=== PATIENT | female | born 1960 | race American Indian/Alaskan Native ===

== ENCOUNTER 2018-10-02 23:53 | Emergency (ER) | payer BC ==
--- NOTE | 2018-10-03 00:55 | XRay Report ---
PROCEDURE: XR CHEST ROUTINE 2V TECHNIQUE: PA and lateral chest radiographs were obtained. HISTORY: SOB COMPARISONS: None. FINDINGS: Heart: Normal. Mediastinum/Vessels: Normal. Lungs/Pleural space: There are increased markings in both lower lungs most consistent with a early i nfiltrative process. No effusion or pneumothorax.. Bony thorax: No acute osseous abnormality. IMPRESSION: Increased markings in both lower lungs most consistent with an early infiltrative proces s. No evidence of effusion or pneumothorax. This document is electronically signed by Vale Clemons DO., October 03 2018 12:53:48 AM ET
[2018-10-03] MEDS ORDERED: ROCEPHIN/NS 1 GM/50 ML 1 GM/50 ML BAG IV ONE (04:15)
[2018-10-03] MEDS ORDERED: IBUPROFEN PO ONE (04:15)
[2018-10-03] MEDS ORDERED: DUONEB *Not for PRN Use IH ONE (04:15)
[2018-10-03] MEDS ORDERED: DECADRON IV ONE (04:17)
--- NOTE | 2018-10-03 04:18 | Emergency Department Report ---
ED General Adult HPI - General Chief complaint: Dyspnea/Respdistress Stated complaint: SOB Time Seen by Provider: 10/03/18 04:12 Source: patient Mode of arrival: Ambulatory Limitations: No Limitations - History of Present Illness Initial comments: Pt is a 58 y/o aaf with hx of COPD,and HTN, who presents for cough productive green with noc wheezing for past x 3 days , symptoms are exacerbated by environmental exposure symptoms are relieved by rest, pt denies cp or n/v. pt endorses out of albuterol and symbicort. [email or web address] is follow by pulmonology Dr. Tatum costello Onset/Timin -: days(s) Radiation: non-radiation Severity scale (0 -10): 3 Consistency: constant Improves with: rest Worsens with: other (environmental exposure ) Associated Symptoms: cough Treatments Prior to Arrival: none - Related Data Previous Rx's Medication Instructions Recorded Last Taken Type ALBUTEROL Inhaler(NF) [VENTOLIN 2 puff IH Q4HRT PRN #1 inha 10/03/18 Unknown Rx Inhaler(NF)] Azithromycin [Zithromax Z-FRANSISCO] 250 mg PO DAILY #6 tab 10/03/18 Unknown Rx Benzonatate [Tessalon Perle] 100 mg PO TID PRN #30 capsule 10/03/18 Unknown Rx Budesoni/Formotero 160-4.5(Nf) 2 puff IH BID #1 inha 10/03/18 Unknown Rx [Symbicort 160-4.5 (Nf)] Ibuprofen 800 mg PO TID PRN #30 tablet 10/03/18 Unknown Rx Allergies Allergy/AdvReac Type Severity Reaction Status Date / Time Sulfa (Sulfonamide Allergy Rash Verified 10/03/18 00:13 Antibiotics) ED Review of Systems ROS: Stated complaint: SOB Other details as noted in HPI Constitutional: denies: chills, fever Eyes: denies: eye pain, eye discharge, vision change ENT: ear pain, throat pain, congestion Respiratory: cough, wheezing. denies: shortness of breath Cardiovascular: denies: chest pain, palpitations Endocrine: no symptoms reported Gastrointestinal: denies: abdominal pain, nausea, vomiting, diarrhea Genitourinary: denies: urgency, dysuria, discharge Musculoskeletal: denies: back pain, joint swelling, arthralgia Skin: denies: rash, lesions Neurological: denies: headache, weakness, paresthesias Psychiatric: denies: anxiety, depression Hematological/Lymphatic: denies: easy bleeding, easy bruising ED Past Medical Hx - Past Medical History Previous Medical History?: Yes Hx Hypertension: Yes Hx Psychiatric Treatment: Yes (Bipolar, severe depression) Hx COPD: Yes Additional medical history: Emphysema,Bronchitis, High Cholesterol - Surgical History Past Surgical History?: Yes Additional Surgical History: Hysterectomy - Social History Smoking Status: Current Every Day Smoker Substance Use Type: Alcohol, Cocaine, Marijuana - Medications Home Medications: Home Medications Medication Instructions Recorded Confirmed Last Taken Type ALBUTEROL Inhaler(NF) [VENTOLIN 2 puff IH Q4HRT PRN #1 inha 10/03/18 Unknown Rx Inhaler(NF)] Azithromycin [Zithromax Z-FRANSISCO] 250 mg PO DAILY #6 tab 10/03/18 Unknown Rx Benzonatate [Tessalon Perle] 100 mg PO TID PRN #30 capsule 10/03/18 Unknown Rx Budesoni/Formotero 160-4.5(Nf) 2 puff IH BID #1 inha 10/03/18 Unknown Rx [Symbicort 160-4.5 (Nf)] Ibuprofen 800 mg PO TID PRN #30 tablet 10/03/18 Unknown Rx ED Physical Exam - General Limitations: No Limitations General appearance: alert, in no apparent distress - Head Head exam: Present: atraumatic, normocephalic - Eye Eye exam: Present: normal appearance, PERRL, EOMI Pupils: Present: normal accommodation - ENT ENT exam: Present: normal exam, normal orophraynx, mucous membranes moist, TM's normal bilaterally, normal external ear exam - Neck Neck exam: Present: normal inspection, full ROM. Absent: tenderness, meningismus, lymphadenopathy, thyromegaly - Respiratory Respiratory exam: Present: wheezes. Absent: respiratory distress, stridor, chest wall tenderness, prolonged expiratory - Cardiovascular Cardiovascular Exam: Present: regular rate, normal rhythm, normal heart sounds. Absent: systolic murmur, diastolic murmur, rubs, gallop - GI/Abdominal GI/Abdominal exam: Present: soft, normal bowel sounds. Absent: distended, tenderness, bruit, hernia - Rectal Rectal exam: Present: deferred - Extremities Exam Extremities exam: Present: normal inspection, full ROM, normal capillary refill. Absent: tenderness, pedal edema, joint swelling, calf tenderness - Back Exam Back exam: Present: normal inspection, full ROM. Absent: tenderness, CVA tenderness (R), CVA tenderness (L), muscle spasm, paraspinal tenderness, vertebral tenderness, rash noted - Neurological Exam Neurological exam: Present: alert, oriented X3, CN II-XII intact, normal gait - Psychiatric Psychiatric exam: Present: normal affect, normal mood - Skin Skin exam: Present: warm, dry, intact, normal color. Absent: rash ED Course Vital Signs 10/03/18 00:08 Temperature 97.7 F Pulse Rate 107 H Blood Pressure 159/90 ED Medical Decision Making - EKG Data EKG shows normal: sinus rhythm, axis, intervals, QRS complexes, ST-T waves Rate: normal - EKG Data Interpretation: normal EKG (Ekg interp by ed attending ) - Radiology Data Radiology results: report reviewed, image reviewed Patient: ZHANE ECHEVERRIA MR#: [id number] 7 : 1960 Acct:[id number] Age/Sex: 58 / F ADM Date: 10/02/18 Loc: ED Attending Dr: Ordering Physician: MAURO BRANCH MD Date of Service: 10/03/18 Procedure(s): XR chest routine 2V Accession Number(s): [id number] cc: ED MD SARINA Fluoro Time In Minutes: PROCEDURE: XR CHEST ROUTINE 2V TECHNIQUE: PA and lateral chest radiographs were obtained. HISTORY: SOB COMPARISONS: None. FINDINGS: Heart: Normal. Mediastinum/Vessels: Normal. Lungs/Pleural space: There are increased markings in both lower lungs most consistent with a early infiltrative process. No effusion or pneumothorax.. Bony thorax: No acute osseous abnormality. IMPRESSION: Increased markings in both lower lungs most consistent with an early infiltrative process. No evidence of effusion or pneumothorax. This document is electronically signed by Vale Clemons DO., October 03 2018 12:53:48 AM ET Transcribed By: [facility] Dictated By: VALE CLEMONS MD Electronically Authenticated By: VALE CLEMONS MD Signed Date/Time: 10/03/1854 DD/ TD/TT: 10/03/1840 - Medical Decision Making Symptoms are improved patient examined today in ED without increased shortness of breath plan refill Albuterol and Symbicort inhalers , azithromycin , Tessalon Pearls, Ibuprofen follow up with pcp in [address] Larsen, pt also given referral to [facility]. pt for dc to home in stable condition at this time. Critical care attestation.: If time is entered above; I have spent that time in minutes in the direct care of this critically ill patient, excluding procedure time. ED Disposition Clinical Impression: Bronchitis URI (upper respiratory infection) Qualifiers: URI type: unspecified viral URI Qualified Code(s): J06.9 - Acute upper respiratory infection, unspecified Disposition: DC-01 TO HOME OR SELFCARE Is pt being admited?: No Does the pt Need Aspirin: No Condition: Stable Instructions: Chronic Bronchitis (ED) Additional Instructions: follow up with your pcp Dr. Larsen as scheduled in 2-3 days Prescriptions: Ibuprofen 800 mg PO TID PRN #30 tablet PRN Reason: pain fever Budesoni/Formotero 160-4.5(Nf) [Symbicort 160-4.5 (Nf)] 2 puff IH BID #1 inha Benzonatate [Tessalon Perle] 100 mg PO TID PRN #30 capsule PRN Reason: Cough ALBUTEROL Inhaler(NF) [VENTOLIN Inhaler(NF)] 2 puff IH Q4HRT PRN #1 inha PRN Reason: shortness of breath wheezing Azithromycin [Zithromax Z-FRANSISCO] 250 mg PO DAILY #6 tab Referrals: RADHA TORO MD [Primary Care Provider] - 3-5 Days Forms: Work/School Release Form(ED) Time of Disposition: 07:12
[2018-10-03] MEDS ORDERED: PROVENTIL IH ONE (06:05)
[2018-10-03 07:27] VITALS: BP 148/88
== END 2018-10-03 07:26 | disposition home or self-care (01) ==
LOC: ED 23:53
DX: J40 Bronchitis, not specified as acute or chronic (principal); J06.9 Acute upper respiratory infection, unspecified; I10 Essential (primary) hypertension; J44.9 Chronic obstructive pulmonary disease, unspecified; E78.00 Pure hypercholesterolemia, unspecified; F17.200 Nicotine dependence, unspecified, uncomplicated; F15.90 Other stimulant use, unspecified, uncomplicated; F14.90 Cocaine use, unspecified, uncomplicated; Z90.710 Acquired absence of both cervix and uterus; Z88.2 Allergy status to sulfonamides
CPT/HCPCS: 71046; 94640; 96365; 96366; 96375; 99284; J0696; J1100